=== PATIENT | male | born 1935 | race Caucasian/White ===

== ENCOUNTER 2016-11-04 04:26 | Emergency (ER) | payer MEDICARE ==
[2016-11-04] MEDS ORDERED: SODIUM CHLORIDE 0.9% 500 ML IV STA (04:36)
[2016-11-04] MEDS ORDERED: RX INFO: IV CONTRAST WAS GIVEN 1 EACH MISC MISCELLANE PRN (04:36)
--- NOTE | 2016-11-04 04:46 | ED ---
General Adult HPI - General Stated complaint: Possible Stroke Time Seen by Provider: 11/04/16 04:26 Source: RN notes reviewed - History of Present Illness Initial comments: This is a 82-year-old male who presents emergency Department the EMS. Patient comes in because found him completely unresponsive when she awoke this morning. states he was normal in the went to bed. We did not have specific time as to when that was. Patient is unable to any questions. Per EMS the patient was not moving any extremities. Facial droop he is able to fully with his eyes but does not answer any questions and does not follow any commands. At this time family is not here we have no further history - Related Data Home Medications Medication Instructions Recorded Confirmed Atorvastatin [Lipitor] 80 mg PO DAILY 11/04/16 11/04/16 Folic Acid 1 mg PO DAILY 11/04/16 11/04/16 Insulin Aspart [NovoLOG] 15 units PO BID 11/04/16 11/04/16 Insulin Glargine [Lantus] 30 unit PO BID 11/04/16 11/04/16 Phenytoin Sodium Extended 100 mg PO TID 11/04/16 11/04/16 [Dilantin] Warfarin [Coumadin] 5 mg PO DAILY 11/04/16 11/04/16 levETIRAcetam [Keppra] 250 mg PO BID 11/04/16 11/04/16 Allergies Allergy/AdvReac Type Severity Reaction Status Date / Time No Known Allergies Allergy Verified 11/04/16 05:05 Review of Systems ROS Statement: Those systems with pertinent positive or pertinent negative responses have been documented in the HPI. ROS Other: All systems not noted in ROS Statement are negative. General Exam - General Exam Comments Initial Comments: GENERAL: Patient is well-developed and well-nourished. Patient is nontoxic and well- hydrated and is in no acute distress. ENT: Neck is soft and supple. No significant lymphadenopathy is noted. Oropharynx is clear. Moist mucous membranes. Neck has full range of motion without eliciting any pain. EYES: The sclera were anicteric and conjunctiva were pink and moist. Extraocular movements were intact and pupils were equal round and reactive to light. Eyelids were unremarkable. PULMONARY: Unlabored respirations. Good breath sounds bilaterally. No audible rales rhonchi or wheezing was noted. CARDIOVASCULAR: There is a regular rate and rhythm without any murmurs gallops or rubs. ABDOMEN: Soft and nontender with normal bowel sounds. No palpable organomegaly was noted. There is no palpable pulsatile mass. SKIN: Skin is clear with no lesions or rashes and otherwise unremarkable. NEUROLOGIC: Patient is awake but answers no questions further neurological assessment is impossible because the patient does not respond verbally and does not follow any commands even simple commands. MUSCULOSKELETAL: Normal extremities with adequate strength and full range of motion. No lower extremity swelling or edema. No calf tenderness. LYMPHATICS: No significant lymphadenopathy is noted PSYCHIATRIC: Unable to assess secondary to patient being unresponsive Course Vital Signs 11/04/16 11/04/16 11/04/16 04:30 04:45 05:00 Temperature 98.0 F Pulse Rate 73 69 72 Respiratory 18 18 18 Rate Blood Pressure 170/82 164/95 162/77 O2 Sat by Pulse 92 L 93 L 94 L Oximetry 11/04/16 11/04/16 05:15 05:30 Temperature Pulse Rate 66 66 Respiratory 18 18 Rate Blood Pressure 152/87 150/88 O2 Sat by Pulse 93 L 94 L Oximetry Medical Decision Making - Medical Decision Making EKG shows sinus rhythm at 69 bpm AL interval 2:30 QRS is 92 QT interval is 438 QTC is 469. Patient's EKG shows no ST segment elevation or depression or T wave abnormalities are noted. CT and CTA showed no acute abnormalities. Patient was given half an amp of dextrose because of his Accu-Chek of 65 and shortly thereafter patient was completely responsive and alert and oriented 3 Patient told us that he took his NovoLog and Lantus later in the evening when he had his late-night snack instead of before his meal at dinnertime. Patient states he normally takes it at dinnertime. - Lab Data Result diagrams: 11/04/16 04:35 11/04/16 04:35 Lab Results 11/04/16 11/04/16 11/04/16 Range/Units 04:35 04:35 04:35 WBC 11.1 H (3.8-10.6) k/uL RBC 5.32 (4.30-5.90) m/uL Hgb 14.0 (13.0-17.5) gm/dL Hct 44.1 (39.0-53.0) % MCV 83.0 (80.0-100.0) fL MCH 26.2 (25.0-35.0) pg MCHC 31.6 (31.0-37.0) g/dL RDW 15.8 H (11.5-15.5) % Plt Count 223 (150-450) k/uL Neutrophils % 71 % Lymphocytes % 18 % Monocytes % 6 % Eosinophils % 1 % Basophils % 0 % Neutrophils # 7.8 H (1.3-7.7) k/uL Lymphocytes # 2.0 (1.0-4.8) k/uL Monocytes # 0.7 (0-1.0) k/uL Eosinophils # 0.2 (0-0.7) k/uL Basophils # 0.0 (0-0.2) k/uL PT (9.0-12.0) sec INR (<1.2) APTT (22.0-30.0) sec Sodium 142 (137-145) mmol/L Potassium 3.9 (3.5-5.1) mmol/L Chloride 106 (98-107) mmol/L Carbon Dioxide 23 (22-30) mmol/L Anion Gap 13 mmol/L BUN 20 (9-20) mg/dL Creatinine 0.96 (0.66-1.25) mg/dL Est GFR (MDRD) Af Amer >60 (>60 ml/min/1.73 sqM) Est GFR (MDRD) Non-Af >60 (>60 ml/min/1.73 sqM) Glucose 59 L (74-99) mg/dL POC Glucose (mg/dL) (75-99) mg/dL POC Glu Student Development Specialist ID Calcium 9.1 (8.4-10.2) mg/dL Total Bilirubin 0.4 (0.2-1.3) mg/dL AST 60 H (17-59) U/L ALT 35 (21-72) U/L Alkaline Phosphatase 145 H (38-126) U/L Total Creatine Kinase 132 (55-170) U/L CK-MB (CK-2) 1.6 (0.0-2.4) ng/mL CK-MB (CK-2) Rel Index 1.2 Troponin I <0.012 (0.000-0.034) ng/mL Total Protein 8.2 (6.3-8.2) g/dL Albumin 4.3 (3.5-5.0) g/dL Urine Color Urine Appearance (Clear) Urine pH (5.0-8.0) Ur Specific [place] (1.001-1.035) Urine Protein (Negative) Urine Glucose (UA) (Negative) Urine Ketones (Negative) Urine Blood (Negative) Urine Nitrite (Negative) Urine Bilirubin (Negative) Urine Urobilinogen (<2.0) mg/dL Ur Leukocyte Esterase (Negative) Urine Opiates Screen (NotDetected) Ur Oxycodone Screen (NotDetected) Urine Methadone Screen (NotDetected) Ur Propoxyphene Screen (NotDetected) Ur Barbiturates Screen (NotDetected) Phenytoin ug/mL U Tricyclic Antidepress (NotDetected) Ur Phencyclidine Scrn (NotDetected) Ur Amphetamines Screen (NotDetected) U Methamphetamines Scrn (NotDetected) U Benzodiazepines Scrn (NotDetected) Urine Cocaine Screen (NotDetected) U Marijuana (THC) Screen (NotDetected) 11/04/16 11/04/16 11/04/16 Range/Units 04:35 04:35 04:36 WBC (3.8-10.6) k/uL RBC (4.30-5.90) m/uL Hgb (13.0-17.5) gm/dL Hct (39.0-53.0) % MCV (80.0-100.0) fL MCH (25.0-35.0) pg MCHC (31.0-37.0) g/dL RDW (11.5-15.5) % Plt Count (150-450) k/uL Neutrophils % % Lymphocytes % % Monocytes % % Eosinophils % % Basophils % % Neutrophils # (1.3-7.7) k/uL Lymphocytes # (1.0-4.8) k/uL Monocytes # (0-1.0) k/uL Eosinophils # (0-0.7) k/uL Basophils # (0-0.2) k/uL PT 52.6 H (9.0-12.0) sec INR 5.3 H* (<1.2) APTT 37.0 H (22.0-30.0) sec Sodium (137-145) mmol/L Potassium (3.5-5.1) mmol/L Chloride (98-107) mmol/L Carbon Dioxide (22-30) mmol/L Anion Gap mmol/L BUN (9-20) mg/dL Creatinine (0.66-1.25) mg/dL Est GFR (MDRD) Af Amer (>60 ml/min/1.73 sqM) Est GFR (MDRD) Non-Af (>60 ml/min/1.73 sqM) Glucose (74-99) mg/dL POC Glucose (mg/dL) 65 L (75-99) mg/dL POC Glu Student Development Specialist ID Dion Martino Calcium (8.4-10.2) mg/dL Total Bilirubin (0.2-1.3) mg/dL AST (17-59) U/L ALT (21-72) U/L Alkaline Phosphatase (38-126) U/L Total Creatine Kinase (55-170) U/L CK-MB (CK-2) (0.0-2.4) ng/mL CK-MB (CK-2) Rel Index Troponin I (0.000-0.034) ng/mL Total Protein (6.3-8.2) g/dL Albumin (3.5-5.0) g/dL Urine Color Urine Appearance (Clear) Urine pH (5.0-8.0) Ur Specific [place] (1.001-1.035) Urine Protein (Negative) Urine Glucose (UA) (Negative) Urine Ketones (Negative) Urine Blood (Negative) Urine Nitrite (Negative) Urine Bilirubin (Negative) Urine Urobilinogen (<2.0) mg/dL Ur Leukocyte Esterase (Negative) Urine Opiates Screen (NotDetected) Ur Oxycodone Screen (NotDetected) Urine Methadone Screen (NotDetected) Ur Propoxyphene Screen (NotDetected) Ur Barbiturates Screen (NotDetected) Phenytoin 20.2 H* ug/mL U Tricyclic Antidepress (NotDetected) Ur Phencyclidine Scrn (NotDetected) Ur Amphetamines Screen (NotDetected) U Methamphetamines Scrn (NotDetected) U Benzodiazepines Scrn (NotDetected) Urine Cocaine Screen (NotDetected) U Marijuana (THC) Screen (NotDetected) 11/04/16 11/04/16 Range/Units 06:15 06:15 WBC (3.8-10.6) k/uL RBC (4.30-5.90) m/uL Hgb (13.0-17.5) gm/dL Hct (39.0-53.0) % MCV (80.0-100.0) fL MCH (25.0-35.0) pg MCHC (31.0-37.0) g/dL RDW (11.5-15.5) % Plt Count (150-450) k/uL Neutrophils % % Lymphocytes % % Monocytes % % Eosinophils % % Basophils % % Neutrophils # (1.3-7.7) k/uL Lymphocytes # (1.0-4.8) k/uL Monocytes # (0-1.0) k/uL Eosinophils # (0-0.7) k/uL Basophils # (0-0.2) k/uL PT (9.0-12.0) sec INR (<1.2) APTT (22.0-30.0) sec Sodium (137-145) mmol/L Potassium (3.5-5.1) mmol/L Chloride (98-107) mmol/L Carbon Dioxide (22-30) mmol/L Anion Gap mmol/L BUN (9-20) mg/dL Creatinine (0.66-1.25) mg/dL Est GFR (MDRD) Af Amer (>60 ml/min/1.73 sqM) Est GFR (MDRD) Non-Af (>60 ml/min/1.73 sqM) Glucose (74-99) mg/dL POC Glucose (mg/dL) 110 H (75-99) mg/dL POC Glu Student Development Specialist ID Dion Martino Calcium (8.4-10.2) mg/dL Total Bilirubin (0.2-1.3) mg/dL AST (17-59) U/L ALT (21-72) U/L Alkaline Phosphatase (38-126) U/L Total Creatine Kinase (55-170) U/L CK-MB (CK-2) (0.0-2.4) ng/mL CK-MB (CK-2) Rel Index Troponin I (0.000-0.034) ng/mL Total Protein (6.3-8.2) g/dL Albumin (3.5-5.0) g/dL Urine Color Yellow Urine Appearance Clear (Clear) Urine pH 5.0 (5.0-8.0) Ur Specific [place] 1.017 (1.001-1.035) Urine Protein Trace H (Negative) Urine Glucose (UA) Negative (Negative) Urine Ketones Negative (Negative) Urine Blood Negative (Negative) Urine Nitrite Negative (Negative) Urine Bilirubin Negative (Negative) Urine Urobilinogen <2.0 (<2.0) mg/dL Ur Leukocyte Esterase Negative (Negative) Urine Opiates Screen Not Detected (NotDetected) Ur Oxycodone Screen Not Detected (NotDetected) Urine Methadone Screen Not Detected (NotDetected) Ur Propoxyphene Screen Not Detected (NotDetected) Ur Barbiturates Screen Detected H (NotDetected) Phenytoin ug/mL U Tricyclic Antidepress Not Detected (NotDetected) Ur Phencyclidine Scrn Not Detected (NotDetected) Ur Amphetamines Screen Not Detected (NotDetected) U Methamphetamines Scrn Not Detected (NotDetected) U Benzodiazepines Scrn Not Detected (NotDetected) Urine Cocaine Screen Not Detected (NotDetected) U Marijuana (THC) Screen Not Detected (NotDetected) Disposition Clinical Impression: Coagulopathy, Hypoglycemia Disposition: HOME SELF-CARE Instructions: Hypoglycemia in a Person with Diabetes (ED) Additional Instructions: Hold your Coumadin today and tomorrow and have your Coumadin level rechecked on Monday morning Patient should take his insulin on the same schedule every day Referrals: None,Stated [REFERRING] - 1-2 days Time of Disposition: 06:54
[2016-11-04 04:52] LABS: Basophils % (A) 0 %; CH 26.7; CHCM 32.3; Eosinophils # (A) 0.2 k/uL (0-0.7); Eosinophils % (A) 1 %; HCT 44.1 % (39.0-53.0); HDW 2.87; Luc # (Auto) 0.45; Luc % (Auto) 4; Lymphocytes % (A) 18 %; MCH 26.2 pg (25.0-35.0); MCHC 31.6 g/dL (31.0-37.0); Mean Platelet Volume 8.5; Monocytes # (A) 0.7 k/uL (0-1.0); Monocytes % (A) 6 %; Neutrophils # (A) 7.8 k/uL (1.3-7.7); Neutrophils % (A) 71 %; RBC 5.32 m/uL (4.30-5.90); RDW 15.8 % (11.5-15.5); WBC 11.1 k/uL (3.8-10.6); WBC (Perox) 11.02
[2016-11-04 04:57] LABS: ALT 35 U/L (21-72); AST 60 U/L (17-59); Alkaline Phosphatase 145 U/L (38-126); Anion Gap 13 mmol/L; Blood Urea Nitrogen 20 mg/dL (9-20); Calcium 9.1 mg/dL (8.4-10.2); Carbon Dioxide 23 mmol/L (22-30); Chloride 106 mmol/L (98-107); Glucose 59 mg/dL (74-99); Non-African American GFR(MDRD) >60 (>60 ml/min/1.73 sqM); Potassium 3.9 mmol/L (3.5-5.1); Sodium 142 mmol/L (137-145); Total Bilirubin 0.4 mg/dL (0.2-1.3); Total Protein 8.2 g/dL (6.3-8.2)
[2016-11-04 04:59] LABS: Prothrombin Time 52.6 sec (9.0-12.0)
[2016-11-04 05:04] LABS: INR 5.3 (<1.2)
[2016-11-04 05:05] LABS: Creatine Kinase 132 U/L (55-170)
[2016-11-04 05:12] LABS: Glucose,Whole Blood 65 mg/dL (75-99)
--- NOTE | 2016-11-04 05:14 | CT ---
INDICATION: Neuro deficits TECHNIQUE: CT acquisition is performed through the brain. Sagittal and coronal reformatted images are provided. No IV contrast is administered. DOSE INFORMATION: CTDIvol 57.40 mGy; DLP 1133.30 mGy-cm. One or more of the following dose reduction techniques were used: automated exposure control, adjustment of the mA and/or kV according to patient size, use of iterative reconstruction technique. COMPARISON: None. FINDINGS: There has been previous endovascular coiling in the region of the anterior communicating artery with associated artifact limiting evaluation. There is no evidence of acute intracranial hemorrhage or abnormal extra- axial fluid collection. There is no mass effect or midline shift. There is focal encephalomalacia in the anterior right frontal lobe and in the parafalcine posterior right frontal lobe, likely sequela of prior infarct or contusion. Arnett-white matter differentiation appears otherwise preserved. There is patchy hypoattenuation in the periventricular and deep cerebral white matter, likely the sequela of chronic small vessel ischemic disease. There is central and cortical cerebral and cerebellar atrophy. There is intracranial atherosclerosis. There is no evidence of skull fracture. There are old bilateral craniotomies. There is mild mucosal thickening in the paranasal sinuses. The mastoid air cells are clear. IMPRESSION: 1. No CT evidence of acute intracranial process. 2. Previous endovascular coiling in the region of the anterior communicating artery. 3. Focal encephalomalacia in the anterior right frontal lobe and the parafalcine posterior right frontal lobe, sequela of prior infarct or contusion. 4. Involutional and chronic small vessel ischemic changes. 5. Old bilateral craniotomies.
[2016-11-04 05:18] LABS: Creatine Kinase MB 1.6 ng/mL (0.0-2.4); Troponin I <0.012 ng/mL (0.000-0.034)
--- NOTE | 2016-11-04 05:26 | CT ---
CTA HEAD CTA NECK INDICATION: Neuro deficits TECHNIQUE: CT acquisition is performed through the head and neck per institutional CT angiogram protocol following the administration of 65 mL Omnipaque 350 IV contrast . Sagittal and coronal reformatted images and MIP reconstructions are provided. DOSE INFORMATION: CTDIvol 239.50 mGy; DLP 520.80 mGy-cm. One or more of the following dose reduction techniques were used: automated exposure control, adjustment of the mA and/or kV according to patient size, use of iterative reconstruction technique. COMPARISON: CT head without contrast, 11/04/16. FINDINGS: CTA HEAD: There is patency of the intracranial circulation. There is minimal attenuation of the right M2 segment and distal right MCA branches. The bilateral M1 segments are patent. There has been prior endovascular coiling in the region of the anterior communicating artery. Artifact obscures the right A1 segment. The left A1 segment is patent. Distal BRENNON branches are patent. The right vertebral artery is dominant. The left vertebral artery ends in PICA. The basilar artery and bilateral P1 segments are patent. No evidence of aneurysm or vascular malformation. CTA NECK: There is atherosclerosis of the thoracic aorta with normal aortic arch branch anatomy. The bilateral cervical vertebral arteries are patent with dominant right vertebral artery. The bilateral common carotid arteries are patent. There is minimal atherosclerotic plaque involving the carotid bifurcations. The bilateral internal carotid arteries are patent and normal in caliber. There is no evidence of occlusion or aneurysm. There is centrilobular emphysema in the visualized upper lungs. There is cardiomegaly and coronary atherosclerosis. There is cervical spondylosis without evidence of acute osseous abnormality. Soft tissues of the neck are unremarkable. IMPRESSION: 1. Patent intracranial circulation. No proximal occlusion. Minimal attenuation of the right M2 segment and distal right MCA branches. 2. Previous endovascular coiling in the region of the anterior communicating artery. 3. Patent cervical carotid and vertebral arteries. Dominant right vertebral artery.
--- NOTE | 2016-11-04 05:39 | XR ---
INDICATION: Altered mental status COMPARISON: None. FINDINGS: Single frontal view of the chest is provided. There is cardiomegaly and thoracic aortic atherosclerosis. Pulmonary vascularity is normal. Lung volumes are mildly decreased. Upper lobe oligemia is compatible with emphysema. Bibasilar opacities, left greater than right, suggests subsegmental atelectasis. There is no evidence of significant pleural effusion. There is no pneumothorax. There are no acute osseous findings. IMPRESSION: 1. Cardiomegaly and thoracic aortic atherosclerosis. 2. Emphysema. 3. Bibasilar opacities, left greater than right, most likely subsegmental atelectasis.
[2016-11-04 05:56] VITALS: PULSE 66
[2016-11-04] MEDS ORDERED: DEXTROSE 50%-WATER 50 ML SYRINGE IVP STA (06:00)
[2016-11-04 06:18] LABS: Glucose,Whole Blood 110 mg/dL (75-99)
[2016-11-04 06:23] LABS: Appearance,Urine Clear (Clear); Bilirubin,Urine Negative (Negative); Glucose,Urine (UA) Negative (Negative); Ketones,Urine Negative (Negative); Leukocyte Esterase,Urine Negative (Negative); Nitrite,Urine Negative (Negative); Protein,Urine Trace (Negative); Specific Gravity,Urine 1.017 (1.001-1.035); UA Billing (MACRO vs. MICRO) CHEM; Urobilinogen,Urine <2.0 mg/dL (<2.0)
[2016-11-04 07:17] VITALS: BP 153/79; RESP 16; TEMP 97.1
--- NOTE | 2016-11-07 23:03 | CDI ---
Documentation Clarification OP Dear Thad Martino Please do addendum to ED report for missing NS stop time. Thank you, Amelie Pacheco [employer] If you have any questions, please contact [facility] at [phone] [facility]
== END 2016-11-04 07:18 | disposition home or self-care (01) ==
LOC: EDBD → MERGE 04:26 → SUPCPDRO 04:26 → EC 04:26
DX: D68.9 Coagulation defect, unspecified (principal); E16.2 Hypoglycemia, unspecified; Z79.4 Long term (current) use of insulin; Z79.01 Long term (current) use of anticoagulants; Z79.899 Other long term (current) drug therapy
CPT/HCPCS: 99285; 96374; 36415; 93005; 80053; 82550; 82553; 80185; 84484; 85025; 85610; 85730; 81003; 80306; 71010; 70496; 70450; 70498; Q9967

== ENCOUNTER → 2016-11-06 | Outpatient (CLI) | payer MEDICARE | END | disposition home or self-care (01) | DX: Z53.9 Procedure and treatment not carried out, unspecified reason (principal) ==

== ENCOUNTER 2020-12-29 09:50 | Emergency (ER) | payer MEDICARE ==
[2020-12-29 10:09] VITALS: BP 187/81; PULSE 60; RESP 20; TEMP 98
--- NOTE | 2020-12-29 10:15 | ED ---
Recheck HPI - General Chief Complaint: Recheck/Abnormal Lab/Rx Stated Complaint: Med Refill Time Seen by Provider: 12/29/20 10:09 Source: patient, RN notes reviewed Mode of arrival: ambulatory Limitations: no limitations - History of Present Illness Initial Comments: 85-year-old male presented from chief complaint of needing Lantus. Patient states that he did not receive a prescription for Lantus he did receive his needles, NovoLog. Patient states that his blood sugar has been well controlled still patient denies any other complaints. Patient receives his prescriptions from the [facility]. - Related Data Home Medications Medication Instructions Recorded Confirmed Aspirin 81 mg PO HS 12/09/14 12/09/14 Calcium Carbonate [Tums] 500 mg PO HS PRN 12/09/14 12/09/14 Folic Acid 1 mg PO DAILY@1200 12/09/14 12/09/14 Insulin Aspart [NovoLOG] 20 units SQ AC-BID 12/09/14 12/09/14 Insulin Glargine [Lantus] 35 unit SQ AC-BID 12/09/14 12/09/14 Magnesium Hydroxide [Milk of 30 ml PO DAILY PRN 12/09/14 12/09/14 Magnesia] Phenytoin Sodium Extended 100 mg PO TID 12/09/14 12/09/14 [Dilantin] Sildenafil Citrate [Viagra] 50 mg PO ONCE PRN 12/09/14 12/09/14 Thiamine [Vitamin B-1] 100 mg PO [id number] 12/09/14 12/09/14 levETIRAcetam [Keppra] 750 mg PO Q12HR 12/09/14 12/09/14 Atorvastatin [Lipitor] 80 mg PO DAILY 11/04/16 11/04/16 Folic Acid 1 mg PO DAILY 11/04/16 11/04/16 Insulin Aspart [NovoLOG] 15 units PO BID 11/04/16 11/04/16 Phenytoin Sodium Extended 100 mg PO TID 11/04/16 11/04/16 [Dilantin] Warfarin [Coumadin] 5 mg PO DAILY 11/04/16 11/04/16 levETIRAcetam [Keppra] 250 mg PO BID 11/04/16 11/04/16 Previous Rx's Medication Instructions Recorded Insulin Glargine [Lantus] 30 unit PO BID #10 ml 12/29/20 Allergies Allergy/AdvReac Type Severity Reaction Status Date / Time No Known Allergies Allergy Verified 12/29/20 10:09 Review of Systems ROS Statement: Those systems with pertinent positive or pertinent negative responses have been documented in the HPI. ROS Other: All systems not noted in ROS Statement are negative. Past Medical History Past Medical History: CVA/TIA, Diabetes Mellitus, Deep Vein Thrombosis (DVT), Hyperlipidemia, Hypertension, Prostate Disorder, Seizure Disorder, Syncope Additional Past Medical History / Comment(s): Head Injury-1971, Aneurysm-2006, History of Any Multi-Drug Resistant Organisms: None Reported Additional Past Surgical History / Comment(s): Shunts/clips for anuerysm 2006 Past Psychological History: No Psychological Hx Reported Smoking Status: Never smoker Past Alcohol Use History: Abuse, None Reported - Past Family History Father Family Medical History: Cancer Mother Family Medical History: Cancer (Mother at age 72 from some sort of cancer he could not recall what type.) Brother(s) Family Medical History: Neurologic Disorder (Patient had 2 brothers one of the brothers from Parkinson's competition the other one overdose on medications.) Sister(s) Family Medical History: No Reported History (Patient had 3 sisters 2 of them and one son lives no major medical problems.) Son(s) Family Medical History: No Reported History (Patient has one son no major medical problems.) Daughter(s) Family Medical History: No Reported History (Patient has 3 daughters no major medical problems) General Exam General appearance: alert, in no apparent distress Head exam: Present: atraumatic, normocephalic, normal inspection Neck exam: Present: normal inspection. Absent: tenderness, meningismus, lymphadenopathy Respiratory exam: Present: normal lung sounds bilaterally. Absent: respiratory distress, wheezes, rales, rhonchi, stridor Cardiovascular Exam: Present: regular rate, normal rhythm, normal heart sounds. Absent: systolic murmur, diastolic murmur, rubs, gallop, clicks Course Vital Signs 12/29/20 10:07 Temperature 98 F Pulse Rate 60 Respiratory 20 Rate Blood Pressure 187/81 O2 Sat by Pulse 96 Oximetry Medical Decision Making - Medical Decision Making Patient's prescription was refilled patient blood sugars well-controlled return parameters were discussed. Disposition Clinical Impression: Diabetes, Encounter for medication refill Disposition: HOME SELF-CARE Condition: Stable Additional Instructions: Please return to the Emergency Department if symptoms worsen or any other concerns. Prescriptions: Insulin Glargine [Lantus] 30 unit PO BID #10 ml Is patient prescribed a controlled substance at d/c from ED?: No Referrals: Ilsa Antonio MD [Primary Care Provider] - 1-2 days Time of Disposition: 10:15
== END 2020-12-29 10:42 | disposition home or self-care (01) ==
LOC: EC 09:50
DX: Z76.0 Encounter for issue of repeat prescription (principal); E11.9 Type 2 diabetes mellitus without complications; E78.5 Hyperlipidemia, unspecified; I10 Essential (primary) hypertension; Z79.82 Long term (current) use of aspirin; Z79.4 Long term (current) use of insulin; Z86.73 Personal history of transient ischemic attack (TIA), and cerebral infarction without residual deficits; Z86.718 Personal history of other venous thrombosis and embolism
CPT/HCPCS: 99281